=== PATIENT | male | born 1970 | race Caucasian/White ===

== ENCOUNTER → 2024-09-01 11:33 | Outpatient (BNVA) | payer OTHER, SELFPAY | PROVIDERS: PCP Clinical Nurse Specialist Adult Health; Visit Provider Clinical Nurse Specialist Adult Health | DX: E78.5 Hyperlipidemia, unspecified (principal); I10 Essential (primary) hypertension | CPT/HCPCS: 80053; 80061; 83721; 84443; 85025 ==

== ENCOUNTER → 2024-09-04 10:14 | Outpatient (BNVA) | payer OTHER, SELFPAY | PROVIDERS: PCP Clinical Nurse Specialist Adult Health; Visit Provider Clinical Nurse Specialist Adult Health | DX: M25.812 Other specified joint disorders, left shoulder (principal); M25.512 Pain in left shoulder | CPT/HCPCS: 73030 ==